=== PATIENT | female | born 1980 | race Caucasian/White ===

== ENCOUNTER 2018-05-19 03:19 | Observation (INO) ==
[2018-05-19] MEDS ORDERED: Sodium Chlor 0.9% Inj 500 ML IV.SIG ONE (03:57)
[2018-05-19 04:16] LABS: Baso # (Auto) 0.1 th/mm3 (0.0-0.2); Baso % (Auto) 0.7 % (0.0-2.0); Eos # (Auto) 0.2 th/mm3 (0.0-0.4); Eos % (Auto) 1.9 % (0.0-4.0); Hematocrit 39.3 % (35.0-46.0); Hemoglobin 13.1 gm/dL (11.6-15.3); Lymph # (Auto) 2.2 th/mm3 (1.0-4.8); Mean Corpuscular HGB Conc 33.3 % (32.0-36.0); Mean Corpuscular Hemoglobin 29.4 pg (27.0-34.0); Mean Corpuscular Volume 88.5 fL (80.0-100.0); Mean Platelet Volume 7.8 fL (7.0-11.0); Mono # (Auto) 0.5 th/mm3 (0.0-0.9); Mono % (Auto) 5.6 % (0.0-8.0); Neut # (Auto) 5.9 th/mm3 (1.8-7.7); Neut % (Auto) 66.8 % (16.0-70.0); Platelet Count 305 th/mm3 (150-450); Red Blood Count 4.44 mil/mm3 (4.00-5.30); Red Cell Distribution Width 14.2 % (11.6-17.2); White Blood Count 8.9 th/mm3 (4.0-11.0)
[2018-05-19 04:28] LABS: Alanine Aminotransferase 20 U/L (10-53); Albumin 3.3 g/dL (3.4-5.0); Anion Gap 7 meq/L (5-15); Aspartate Aminotransferase 16 U/L (15-37); Blood Urea Nitrogen 12 mg/dL (7-18); Calcium 8.4 mg/dL (8.5-10.1); Carbon Dioxide 24.2 meq/L (21.0-32.0); Chloride 111 meq/L (98-107); Glomerular Filtration Rate 65 mL/min (>89); Glucose,Random 97 mg/dL (74-106); Lipase 188 U/L (73-393); Magnesium 2.1 mg/dL (1.5-2.5); Potassium 4.4 meq/L (3.5-5.1); Sodium 142 meq/L (136-145)
[2018-05-19 04:32] LABS: Alkaline Phosphatase 78 U/L (45-117); Total Protein 7.1 g/dL (6.4-8.2)
[2018-05-19 04:33] LABS: Creatine Kinase 83 U/L (26-192)
[2018-05-19 04:35] LABS: Activated Partial Thrombo Time 26.2 sec (24.3-30.1); INR 0.9 Ratio; Prothrombin Time 9.6 sec (9.8-11.6)
[2018-05-19 04:36] LABS: D-Dimer 0.61 mg/L FEU (0.00-0.50)
--- NOTE | 2018-05-19 05:10 | XR ---
EXAM DATE: 05/19/2018 5:01 AM EDT AGE/SEX: 37 years / Female INDICATIONS: Chest pain and shortness of breath. CLINICAL DATA: This is the patient's initial encounter. Patient reports that signs and symptoms have been present for 1 day and indicates a pain score of 4/10. MEDICAL/SURGICAL HISTORY: None. None. COMPARISON: [facility], CHEST PA & LAT, 07/17/2012. . FINDINGS: A single AP view of the chest demonstrates the lungs to be symmetrically aerated without evidence of mass, infiltrate or effusion. The cardiomediastinal contours are unremarkable. Osseous structures a re intact. CONCLUSION: No acute findings. Electronically signed by: Papa Gomez MD 05/19/2018 5:09 AM EDT
--- NOTE | 2018-05-19 05:32 | ED ---
[facility] General Chief complaint: Chest Pain Stated complaint: chest pain/sob Time Seen by Provider: 05/19/18 03:55 Source: patient Mode of arrival: ambulatory Limitations: no limitations History of Present Illness HPI narrative: The patient is a 37 year old female who presents to the [facility] emergency department with a history of chest pain that she noticed after getting up to go to the bathroom at 2:30 AM. She reports that she did not have it upon awakening, however when she went to lie back down she noticed it. She reports that the pain was a sensation like her chest was caving in. She reports that her entire chest and upper abdomen are painful. She reports that the pain was initially severe, however now it is mild and a 1 out of 10 in severity. She reports that her last meal was at 5 PM yesterday. She denies ever having a pain like this previously. She denies having any recent problems with indigestion or heartburn, however she has noticed recently an increasing problem after eating having sudden onset of loose stool. She denies having any blood in her stool black or tarry stools. The patient reports having a sensation of shortness of breath associated with this chest pain. On review of systems otherwise, the patient denies having any known recent fevers or chills, cough, congestion, neck pain, abdominal pain, urinary symptoms, or neurologic symptoms. She denies any prior history of coronary artery disease, hyperlipidemia, hypertension, or diabetes mellitus. She does report smoking approximately a pack of cigarettes per day. She denies having any prior history of DVT or PE. She denies having any lower extremity edema or erythema. Onset (ago): hour(s) Location: chest Radiation: non-radiation Severity: severe Quality: crushing Pain Consistency: constant Relieving factors: none Exacerbating factors: none Associated symptoms: nausea/vomiting (dry heaving x1.) Treatments prior to arrival: none Related Data Home Medications Medication Instructions Recorded Confirmed No Known Home Medications 05/19/18 05/19/18 Allergies Allergy/AdvReac Type Severity Reaction Status Date / Time No Known Allergies Allergy Verified 05/19/18 03:31 Review of Systems ROS Unobtainable All other systems reviewed negative except as stated in HPI PENDING SALE TO [facility] Medical History Medical History Abdominal hernia (Acute) Sciatica (Acute) Surgical History Surgical History H/O hernia repair (Acute) Social History Social History Substance History: No History of Abuse Smoking Status: Current every day smoker Tobacco Type: Cigarettes Cigarettes Per Day: 20 How Often Do You Have a Drink Containing Alcohol: Monthly or less Recent Travel in [facility] within the Last 8 Weeks: No Recent Out of Country Travel within the Last 8 Weeks: No Immunization History Tetanus Immunization: Unsure Hx Influenza Vaccine This Season: No Exam Const General: cooperative, no acute distress and well developed Nutritional Appearance: well nourished Orientation: alert, awake and oriented x3 HENMT Head: normocephalic and atraumatic Nose: no nasal discharge and no epistaxis Mouth: moist mucous membranes Eyes Sclera: normal sclerae Pupils: PERRL Neck Neck: trachea midline and no JVD Resp Effort & Inspection: no use of accessory muscles Auscultation: clear to auscultation bilaterally Cardio Rate: regular rate Rhythm: regular rhythm Heart Sounds: no murmurs GI Inspection: non-distended Palpation: soft, no hepatosplenomegaly and nontender Back/Spine/Pelvis Back: no CVA tenderness Skin General: dry skin (warm) Neuro General: alert, awake and oriented x3 Speech: speech normal Motor: no movement abnormalities noted Extrem General: normal to inspection, no clubbing, no cyanosis, no edema and other (No calf tenderness on palpation bilaterally. Negative Homans sign. No palpable cords.) Psych Mood: congruent mood Affect: normal affect Judgment: judgment good Course Hospital Course: During the course of the patient's emergency department visit, the patient's history, examination, and differential diagnosis were reviewed with the patient. The patient was placed on a court recording monitor with oximetry and frequent blood pressure monitoring. The patient had IV access obtained and blood work sent for analysis. The patient was initially provided aspirin 324 mg p.o. 1, nitroglycerin sublingual 1. The patient reports that her pain then improved down to 1 out of 10 in severity. Initial Documented Vital Signs Temperature 98.4 F 05/19/18 03:25 Pulse Rate 80 05/19/18 03:25 Respiratory Rate 28 H 05/19/18 03:25 Blood Pressure 138/89 05/19/18 03:25 Pulse Oximetry 99 05/19/18 03:25 Last Documented Vital Signs Temperature 98.4 F 05/19/18 03:25 Pulse Rate 71 05/19/18 07:09 Respiratory Rate 17 05/19/18 07:09 Blood Pressure 111/63 05/19/18 07:09 Pulse Oximetry 100 05/19/18 07:09 Medical Decision Making MDM Narrative Medical decision making narrative: Diagnostic evaluation was started to rule out acute coronary syndrome, versus acid reflux, versus biliary colic, versus acute cholecystitis, versus pancreatitis, versus pulmonary embolism The patient's laboratory studies are remarkable for a normal white blood cell count, PT 9.6, PTT 26.2, d-dimer elevated at 0.61, therefore CTA to rule out PE was ordered. Chemistry is remarkable for a troponin of less than 0.02, CPK 83, lipase within normal limits, GFR 65, chloride 111, calcium 8.4, albumin 3.3. Her chest x-ray showed no acute abnormality, CTA to rule out PE showed no evidence of pulmonary embolism. The patient will be admitted to the chest pain center for rule out serial cardiac enzyme protocol followed by consideration for stress testing. The patient's results were discussed with the patient, including the plan of care. I explained that further testing and/ or monitoring is indicated based on the patient's history, examination, and/ or laboratory findings. Therefore, I recommended admission for additional evaluation. The patient expressed understanding and was agreeable with this plan. The patient was admitted to the hospital in stable condition and sent to a bed under the care of [facility]. Differential Diagnosis Differential Diagnosis: acute coronary syndrome, versus acid reflux, versus biliary colic, versus acute cholecystitis, versus pancreatitis, versus pulmonary embolism POC Test Results POC Urine Results: Negative Lab Data Result diagrams: 05/19/18 04:05 05/19/18 04:05 Lab Results 05/19/18 05/19/18 05/19/18 Range/Units 04:05 04:05 04:05 WBC 8.9 (4.0-11.0) th/mm3 RBC 4.44 (4.00-5.30) mil/mm3 Hgb 13.1 (11.6-15.3) gm/dL Hct 39.3 (35.0-46.0) % MCV 88.5 (80.0-100.0) fL MCH 29.4 (27.0-34.0) pg MCHC 33.3 (32.0-36.0) % RDW 14.2 (11.6-17.2) % Plt Count 305 (150-450) th/mm3 MPV 7.8 (7.0-11.0) fL Neut % (Auto) 66.8 (16.0-70.0) % Lymph % (Auto) 25.0 (9.0-44.0) % Angelina % (Auto) 5.6 (0.0-8.0) % Eos % (Auto) 1.9 (0.0-4.0) % Baso % (Auto) 0.7 (0.0-2.0) % Neut # (Auto) 5.9 (1.8-7.7) th/mm3 Lymph # (Auto) 2.2 (1.0-4.8) th/mm3 Angelina # (Auto) 0.5 (0.0-0.9) th/mm3 Eos # (Auto) 0.2 (0.0-0.4) th/mm3 Baso # (Auto) 0.1 (0.0-0.2) th/mm3 WBC Differential . Differential Comment Auto diff final PT 9.6 L (9.8-11.6) sec INR 0.9 Ratio APTT 26.2 (24.3-30.1) sec D-Dimer Quant (PE/DVT) 0.61 H (0.00-0.50) mg/L FEU Sodium 142 (136-145) meq/L Potassium 4.4 (3.5-5.1) meq/L Chloride 111 H (98-107) meq/L Carbon Dioxide 24.2 (21.0-32.0) meq/L Anion Gap 7 (5-15) meq/L BUN 12 (7-18) mg/dL Creatinine 0.97 (0.50-1.00) mg/dL Estimated GFR 65 L (>89) mL/min Random Glucose 97 (74-106) mg/dL Calcium 8.4 L (8.5-10.1) mg/dL Magnesium 2.1 (1.5-2.5) mg/dL Total Bilirubin 0.2 (0.2-1.0) mg/dL AST 16 (15-37) U/L ALT 20 (10-53) U/L Alkaline Phosphatase 78 (45-117) U/L Total Creatine Kinase 83 (26-192) U/L Troponin I Less than 0.02 L (0.02-0.05) ng/mL B-Natriuretic Peptide (0-100) pg/mL Total Protein 7.1 (6.4-8.2) g/dL Albumin 3.3 L (3.4-5.0) g/dL Lipase 188 (73-393) U/L Urine Color (Yellw/Straw) Urine Clarity (Clear) Urine pH (5.0-8.5) Ur Specific [place] (1.002-1.035) Urine Protein (Neg-Trace) mg/dL Urine Glucose (UA) (Negative) mg/dL Urine Ketones (Negative) mg/dL Urine Occult Blood (Negative) Urine Nitrate (Negative) Urine Bilirubin (Negative) Urine Urobilinogen (Less than 2) mg/dL Ur Leukocyte Esterase (Negative) Urine RBC (0-3) /hpf Urine WBC (0-5) /hpf Ur Squamous Epith Cells (0-5) /hpf Urine Bacteria (None) /hpf Urine Mucus (Occasional) /lpf Micro UA Comment Urine Culture Comments 05/19/18 05/19/18 Range/Units 04:05 05:20 WBC (4.0-11.0) th/mm3 RBC (4.00-5.30) mil/mm3 Hgb (11.6-15.3) gm/dL Hct (35.0-46.0) % MCV (80.0-100.0) fL MCH (27.0-34.0) pg MCHC (32.0-36.0) % RDW (11.6-17.2) % Plt Count (150-450) th/mm3 MPV (7.0-11.0) fL Neut % (Auto) (16.0-70.0) % Lymph % (Auto) (9.0-44.0) % Angelina % (Auto) (0.0-8.0) % Eos % (Auto) (0.0-4.0) % Baso % (Auto) (0.0-2.0) % Neut # (Auto) (1.8-7.7) th/mm3 Lymph # (Auto) (1.0-4.8) th/mm3 Angelina # (Auto) (0.0-0.9) th/mm3 Eos # (Auto) (0.0-0.4) th/mm3 Baso # (Auto) (0.0-0.2) th/mm3 WBC Differential Differential Comment PT (9.8-11.6) sec INR Ratio APTT (24.3-30.1) sec D-Dimer Quant (PE/DVT) (0.00-0.50) mg/L FEU Sodium (136-145) meq/L Potassium (3.5-5.1) meq/L Chloride (98-107) meq/L Carbon Dioxide (21.0-32.0) meq/L Anion Gap (5-15) meq/L BUN (7-18) mg/dL Creatinine (0.50-1.00) mg/dL Estimated GFR (>89) mL/min Random Glucose (74-106) mg/dL Calcium (8.5-10.1) mg/dL Magnesium (1.5-2.5) mg/dL Total Bilirubin (0.2-1.0) mg/dL AST (15-37) U/L ALT (10-53) U/L Alkaline Phosphatase (45-117) U/L Total Creatine Kinase (26-192) U/L Troponin I (0.02-0.05) ng/mL B-Natriuretic Peptide 20 (0-100) pg/mL Total Protein (6.4-8.2) g/dL Albumin (3.4-5.0) g/dL Lipase (73-393) U/L Urine Color Yellow (Yellw/Straw) Urine Clarity Clear (Clear) Urine pH 5.0 (5.0-8.5) Ur Specific [place] 1.020 (1.002-1.035) Urine Protein Negative (Neg-Trace) mg/dL Urine Glucose (UA) Negative (Negative) mg/dL Urine Ketones Negative (Negative) mg/dL Urine Occult Blood Negative (Negative) Urine Nitrate Negative (Negative) Urine Bilirubin Negative (Negative) Urine Urobilinogen Less than 2 (Less than 2) mg/dL Ur Leukocyte Esterase Negative (Negative) Urine RBC Less than 1 (0-3) /hpf Urine WBC Less than 1 (0-5) /hpf Ur Squamous Epith Cells 3 (0-5) /hpf Urine Bacteria Rare H (None) /hpf Urine Mucus Few H (Occasional) /lpf Micro UA Comment Culture not ind Urine Culture Comments Culture not ind Imaging Data Radiologist's impression: Chest X-Ray 05/19/18 03:57 CONCLUSION: No acute findings. Chest CTA 05/19/18 05:02 CONCLUSION: 1. No acute findings. Negative for pulmonary embolus. Discharge Plan Discharge Disposition Patient Disposition: 30 Still Patient Discharge Details Diagnosis: Chest pain, rule out acute myocardial infarction Physicians Team ED Provider: Elisa Davies Primary Care Provider: Magdy Johnson Attending Provider: Nghia Bauman Discharge Interventions Interventions: Vital Signs Last Done: 05/19/18 03:30 Status ED Status: Admitted Observation Patient
[2018-05-19 05:39] LABS: Bacteria,Urine Rare /hpf; Bilirubin,Urine Negative (Negative); Clarity,Urine Clear (Clear); Color,Urine Yellow (Yellw/Straw); Glucose,Urine (UA) Negative (Negative); Leukocyte Esterase,Urine Negative (Negative); Mucus,Urine Few /lpf (Occasional); Nitrite,Urine Negative (Negative); Squamous Epithelial Cell,Urine 3 /hpf (0-5)
--- NOTE | 2018-05-19 05:58 | CT ---
EXAM DATE: 05/19/2018 5:52 AM EDT AGE/SEX: 37 years / Female INDICATIONS: Chest pain and shortness of breath; rule out pulmonary embolus. CLINICAL DATA: This is the patient's initial encounter. Patient reports that signs and symptoms have been present for 1 day and indicates a pain score of 6/10. MEDICAL/SURGICAL HISTORY: None. . Hernia repair RADIATION DOSE: 10.23 CTDI (mGy) COMPARISON: No prior exams available for comparison. TECHNIQUE: Volumetric scanning was performed using a multi-row detector CT scanner during bolus infu jarrod of 71 ml Omnipaque 350 (iohexol) nonionic water-soluble contrast as a single exam dose. The sohail a was post processed with a variety of visualization algorithms including full volume maximum intensi ty projection and sliding thin slab reformation. Using automated exposure control and adjustment of the mA and/or kV according to patient size, radiation dose was kept as low as reasonably achievable t o obtain optimal diagnostic quality images. DICOM format image data is available electronically for review and comparison. FINDINGS: No filling defects to suggest pulmonary embolic disease. No lung consolidation. No pleural or pericar dial effusion. No adenopathy. CONCLUSION: 1. No acute findings. Negative for pulmonary embolus. Electronically signed by: Papa Gomez MD 05/19/2018 5:57 AM EDT
[2018-05-19 07:11] VITALS: O2SAT 100
[2018-05-19 08:32] LABS: Creatine Kinase 74 U/L (26-192)
--- NOTE | 2018-05-19 10:07 | P.HPCA ---
History of Present Illness Primary Care Physician: Magdy Johnson DO Chief Complaint: Chest pain History of Present Illness: This is a 37-year-old female presents to ED with complaint of developing a chest discomfort about 3:00 this morning while she was in bed. Lasted 2-1/2 hours. She was short of breath and nauseous without diaphoresis. Found nothing really to worsen or improve the symptoms when they are present. Has not really had this in the past. Denies history of hypertension, hyperlipidemia , diabetes, and CAD. Denies . Denies family history of CAD. Has smoked a pack of cigarettes daily for more than 15 years. Occasional alcohol. Denies illicit drug use. - Diagnosis (1) Chest pain (2) Tobacco abuse Inpatient Certification: I certify that the inpatient services were ordered in accordance with Medicare regulations governing the order. This includes certification that hospital inpatient services are reasonable and necessary and in the case of services not specified as inpatient-only under 42 CFR 419.22(n), that they are appropriately provided as inpatient services in accordance to with the 2-midnight benchmark under 43 CFR 412.3(e) Review of Systems General: Patient denies fevers, chills, and recent travel. HEENT: Patient denies headache, sore throat, difficulty swallowing. Cardiovascular: Has the chest discomfort as mentioned above. Denies sensation of heart beating rapidly or irregularly. No syncope. Denies diaphoresis. Respiratory: She was short of breath. Denies inspirational chest discomfort. Denies coughing wheezing or hemoptysis. GI: She was nauseous. Patient denies vomiting, diarrhea, abdominal pain, bloody stools. Musculoskeletal: Patient denies joint pain or edema. Denies calf pain or edema. Neurovascular: Patient denies numbness, tingling, weakness in extremities. Denies headache. Endocrine: Denies polyuria and polydipsia. Hematologic: Denies easy bruising. Skin: Denies rash or itching. PMFSH - History History Provided By: Patient - Medical History Medical History: Medical History (Last Reviewed 05/19/18 @ 07:59 by Elisa Davies MD) Abdominal hernia (Acute) Sciatica (Acute) - Surgical History Surgical History: Surgical History (Last Reviewed 05/19/18 @ 07:59 by Elisa Davies MD) H/O hernia repair - Tobacco History Tobacco Use In Past 30 Days: Yes Smoking Status: Current every day smoker Tobacco Type: Cigarettes Cigarettes Per Day: 20 - Alcohol History How Often Do You Have a Drink Containing Alcohol: Monthly or less - Substance Use History Substance History: No History of Abuse - Travel History Recent Travel in the [place] Within the Last 8 Weeks: No Recent Travel Out of the Country Within the Last 8 Weeks: No - Immunization History Tetanus Immunization: Unsure Hx Influenza Vaccine This Season: No Medications and Allergies Active Medications: Active Medications Sodium Chloride (Ns Flush) 2 ml IV.FLUSH UNSCH PRN PRN Reason: FLUSH AFTER USING IV ACCESS Last Admin: 05/19/18 05:06 Dose: 2 ml Sodium Chloride (Ns Flush) 2 ml IV.FLUSH BID TOOTIE Sodium Chloride (Ns Flush) 2 ml IV.FLUSH PRN PRN PRN Reason: FLUSH AFTER USING IV ACCESS Allergies Allergy/AdvReac Type Severity Reaction Status Date / Time No Known Allergies Allergy Verified 05/19/18 03:31 Home Medications Medication Instructions Recorded Confirmed Type No Known Home Medications 05/19/18 05/19/18 History Exam Vital signs: Vital Signs 05/19/18 03:25 05/19/18 03:30 05/19/18 04:07 Temperature 98.4 F Pulse Rate 80 74 Respiratory Rate 28 H 20 Blood Pressure 138/89 125/69 Pulse Oximetry 99 100 99 05/19/18 07:09 Temperature Pulse Rate 71 Respiratory Rate 17 Blood Pressure 111/63 Pulse Oximetry 100 Intake & Output 05/18/18 05/19/18 05/19/18 18:59 06:59 18:59 Weight 129.274 kg Narrative: GENERAL: This is a well-nourished, well-developed patient, in no apparent distress. Patient speaks in clear complete sentences. Patient is pleasant. HEENT: Head is atraumatic and normocephalic. Neck is supple without lymphadenopathy and trachea is midline. No JVD or carotid bruits. CARDIOVASCULAR: Regular rate and rhythm without murmurs, gallops, or rubs. RESPIRATORY: Clear to auscultation. Breath sounds equal bilaterally. No wheezes , rales, or rhonchi. Chest wall is nontender. No use of accessory muscles. GASTROINTESTINAL: Abdomen is nontender, nondistended. Abdomen soft. No obvious pulsatile mass or bruit. No CVA tenderness. Strong femoral pulses bilaterally. Normal bowel sounds in all quadrants. MUSCULOSKELETAL: Patient is moving upper and lower extremities freely. No calf tenderness or edema, no Homans sign. Strong pulses in upper and lower extremities. NEUROLOGICAL: Patient is alert and oriented. Cranial nerves 2-12 are grossly intact. No focal deficits and speech is clear. SKIN: No rash and turgor is normal. Results 05/19/18 04:05 05/19/18 04:05 Cardiac Enzymes 05/19/18 05/19/18 05/19/18 Range/Units 04:05 04:05 07:30 AST 16 (15-37) U/L Troponin I Less than 0.02 L Less than 0.02 L (0.02-0.05) ng/mL B-Natriuretic Peptide 20 (0-100) pg/mL Coagulation 05/19/18 05/19/18 Range/Units 04:05 04:05 PT 9.6 L (9.8-11.6) sec APTT 26.2 (24.3-30.1) sec B-Natriuretic Peptide 20 (0-100) pg/mL CBC 05/19/18 Range/Units 04:05 WBC 8.9 (4.0-11.0) th/mm3 RBC 4.44 (4.00-5.30) mil/mm3 Hgb 13.1 (11.6-15.3) gm/dL Hct 39.3 (35.0-46.0) % Plt Count 305 (150-450) th/mm3 Neut # (Auto) 5.9 (1.8-7.7) th/mm3 Lymph # (Auto) 2.2 (1.0-4.8) th/mm3 [place] # (Auto) 0.5 (0.0-0.9) th/mm3 Eos # (Auto) 0.2 (0.0-0.4) th/mm3 Baso # (Auto) 0.1 (0.0-0.2) th/mm3 Comprehensive Metabolic Panel 05/19/18 Range/Units 04:05 Sodium 142 (136-145) meq/L Potassium 4.4 (3.5-5.1) meq/L Chloride 111 H (98-107) meq/L Carbon Dioxide 24.2 (21.0-32.0) meq/L BUN 12 (7-18) mg/dL Creatinine 0.97 (0.50-1.00) mg/dL Calcium 8.4 L (8.5-10.1) mg/dL AST 16 (15-37) U/L ALT 20 (10-53) U/L Alkaline Phosphatase 78 (45-117) U/L Total Protein 7.1 (6.4-8.2) g/dL Albumin 3.3 L (3.4-5.0) g/dL Intake and Output 05/18/18 05/19/18 05/19/18 22:59 06:59 14:59 Other: Weight 129.274 kg EKG interpretations - EKG EKG shows: sinus rhythm (EKGs are sinus rhythm without significant ST segment depressions or elevations.) Caprini VTE Risk Assessment Caprini VTE Risk Assessment: No/Low Risk (score <= 1) Caprini Risk Assessment Model: Point Value = 1 Point Value = 2 Point Value = 3 Point Value = 5 Age 41-60 Minor surgery BMI > 25 kg/m2 Swollen legs Varicose veins or History of unexplained or recurrent spontaneous Oral contraceptives or hormone replacement Sepsis (< 1 month) Serious lung disease, including pneumonia (< 1 month) Abnormal pulmonary function Acute myocardial infarction Congestive heart failure (< 1 month) History of inflammatory bowel disease Medical patient at bed rest Age 61-74 Arthroscopic surgery Major open surgery (> 45 min) Laparoscopic surgery (> 45 min) Malignancy Confined to bed (> 72 hours) Immobilizing plaster cast Central venous access Age >= 75 History of VTE Family history of VTE Factor V Leiden Prothrombin [id number] Lupus anticoagulant Anticardiolipin antibodies Elevated serum homocysteine Heparin-induced thrombocytopenia Other congenital or acquired thrombophilia Stroke (< 1 month) Elective arthroplasty Hip, pelvis, or leg fracture Acute spinal cord injury (< 1 month) Prophylaxis Regimen: Total Risk Factor Score Risk Level Prophylaxis Regimen 0-1 Low Early ambulation 2 Moderate Order ONE of the following: *Sequential Compression Device (SCD) *Heparin 5000 units SQ BID 3-4 Higher Order ONE of the following medications: *Heparin 5000 units SQ TID *Enoxaparin/Lovenox 40 mg SQ daily (WT < 150 kg, CrCl > 30 mL/min) *Enoxaparin/Lovenox 30 mg SQ daily (WT < 150 kg, CrCl > 10-29 mL/min) *Enoxaparin/Lovenox 30 mg SQ BID (WT < 150 kg, CrCl > 30 mL/min) AND/OR *Sequential Compression Device (SCD) 5 or more Highest Order ONE of the following medications: *Heparin 5000 units SQ TID (Preferred with Epidurals) *Enoxaparin/Lovenox 40 mg SQ daily (WT < 150 kg, CrCl > 30 mL/min) *Enoxaparin/Lovenox 30 mg SQ daily (WT < 150 kg, CrCl > 10-29 mL/min) *Enoxaparin/Lovenox 30 mg SQ BID (WT < 150 kg, CrCl > 30 mL/min) AND *Sequential Compression Device (SCD) Assessment and Plan - Assessment (1) Chest pain Code(s): R07.9 - Chest pain, unspecified Status: Acute (2) Tobacco abuse Code(s): Z72.0 - Tobacco use Status: Acute - Plan * Chest pain: Patient has had serial cardiac enzymes and EKGs were ruling out purposes. She was seen by Dr. Antonio Leggett of cardiology in the chest pain center and will undergo a Lexiscan. Patient be discharged home if her stress test is nonischemic with instructions to follow-up with PCP and return to ED for interval issues. * Tobacco abuse: Patient has been counseled on the importance of smoking cessation. Patient is stable at this time. She is agreeable to this plan.
[2018-05-19] MEDS ORDERED: Regadenoson Inj 0.4 MG/5 ML Syringe IV.PUSH ONE (10:55)
--- NOTE | 2018-05-19 11:40 | NM ---
EXAM DATE: 05/19/2018 11:30 AM EDT AGE/SEX: 37 years / Female INDICATIONS:Angina. . Substernal chest pain. CLINICAL DATA: This is the patient's initial encounter. Patient reports that signs and symptoms have been present for 1 day and indicates a pain score of 6/10. MEDICAL/SURGICAL HISTORY: None. Inguinal hernia repair. COMPARISON: No prior exams available for comparison. DOSE: 11 mCi Tc 99m Myoview at rest 35 mCi [id number] at stress 0.4 mg Lexiscan STRESS SYMPTOMS: Dyspnea and legs heavy. EJECTION FRACTION: 69 % TECHNIQUE: The patient underwent pharmacologic stress with infusion of prescribed dose. Continuous ECG tracing was monitored during stress. Gated SPECT imaging was performed after stress and conventi onal SPECT imaging was performed at rest. The examination was performed on a SPECT/CT scanner, both attenuation and non-corrected datasets were reviewed. FINDINGS: Distribution: The maximum perfused segment at stress is in the anterolateral wall. Perfusion Study: There is mildly diminished relative to perfusion to much of the cardiac apex. Sugg estion of mild redistribution Gated Study: There are intact wall motion and wall thickening without hypokinetic or dyskinetic segm ents. The ejection fraction is calculated at 69%. RISK CATEGORY: Intermediate (1-3 % Annual Mortality Rate) CONCLUSION: Moderate size mild severity apical perfusion abnormality with at least mild redistribution suspected. Electronically signed by: Otoniel Fischer MD 05/19/2018 11:39 AM EDT
[2018-05-19 14:19] VITALS: BP 121/83; PULSE 82; RESP 20; TEMP 98.7
--- NOTE | 2018-05-19 14:42 | ECG ---
Date Performed: 05/19/2018 Time Performed: 08:26:05 PTAGE: 37 years EKG: Sinus rhythm LOW QRS VOLTAGE IN PRECORDIAL LEADS BORDERLINE ECG NO PREVIOUS TRACING DOCTOR: Antonio Leggett Interpretating Date/Time 05/19/2018 14:41:59
--- NOTE | 2018-05-19 14:43 | ECG ---
Date Performed: 05/19/2018 Time Performed: 04:05:06 PTAGE: 37 years EKG: Sinus rhythm LOW QRS VOLTAGE IN PRECORDIAL LEADS BORDERLINE ECG PREVIOUS TRACING : 07/17/2012 17.45 Since previous tracing, no significant change noted DOCTOR: Antonio Leggett Interpretating Date/Time 05/19/2018 14:42:27
--- NOTE | 2018-05-19 14:51 | TR ---
Date Performed: 05/19/2018 Time Performed: 10:38:49 DOCTOR: Antonio Leggett DRUG LIST: CLINICAL HISTORY: CHEST PAIN REASON FOR TEST: CHEST PAIN REASON FOR ENDING: OBSERVATION: CONCLUSION: COMMENTS: Lexiscan stress test was performed under standard four minute protocol. Radionuclide was injected one minute prior to ending the test. No electrocardiographic abormalities were present t o suggest ischemia. Nuclear imaging and interpretation are pending.
--- NOTE | 2018-05-20 14:44 | CATHPROC ---
CONWEAVER HIS Report Study Information Study Number Admission Scheduled Start Study Start [id number] May 19 2018 6:36AM 05/20/2018 May 20 2018 1:49PM [place] [facility] Cardiac Catheterization Admit Source Facility Department Emergency department [facility] - [facility] Supervisor Physician and Clinical Staff Initial MD Shelby, Edilberto Director Health Matthieu Patterson RN Other cathlab, cathlab Recorder Richard Buck RCIS(BS) Scrub Aleshia Maguire,RT(R) (BS) Procedures Performed Procedure Location (Site) Vessel Name Coronary Angiograms LCA Left Coronary Coronary Angiograms RCA Right Coronary L Heart Cath LV Gram-hand inj. LV LV Ventricle Equipment Time Manager Of Program Description Size Mfg Part Number Used/Scraped TRANSDUCER, TRUWAVE [id number] 14:05 LIANG MAURICE * Used W/STOCKCOCK *[id number] *[id number] *[id number] 14:05 [employer] BLANKET,WARM AIR CCL * Used *[id number] 14:05 [employer] PACK, CCL CUSTOM * Used *[id number] 14:05 [employer]ra PACER PEN, SKIN DUAL W/ RULER * Used *[id number] 14:05 [employer] WIRE, 3MMJ .035 180CM 180CM Used *[id number] 14:05 NAMIC MANIFOLD, 4 PORT * Used *[id number] 14:05 [employer]COMED OMNIPAQUE, 350 MG, 150ML 150ML [id number] 14:05 [employer] Solutions[employer] MEDICAL SHEATH, FR4 TERUMO (10CM) FR 4 Used *[id number] History: Allergies Allergy Reaction No Known Allergies History: Risk Factors Family History of Hypertension Dyslipidemia Previous AL Previous Heart Failure Premature CAD No No No No No Prior Valve Prior PCI Prior CABG Surgery No No No Cerebrovascular Peripheral Artery Chronic Lung On Dialysis Diabetes Disease Disease Disease No No No No No History: Symptoms/Diagnosis Selection Items Chest pain History: Stress Tests Stress or Imaging Studies Performed Yes Standard Exercise Stress Test No Stress Echo No Stress Test SPECT Stress Test SPECT Result Stress Test SPECT Ischemia Risk/Extent Yes Positive Unavailable Stress Test CMR No Cardiac CTA Coronary Calcium Score No No History: Other Disease Selection Items HTN History: Other Current Smoker Packs a Day Years Used Pack Years Yes 1 15 15 Labs Hgb (g/dl) Hct (%) WBC (l/cumm) Platelets (thousands) 11.60-17.00 35.00-51.00 4.00-11.00 150.00-450.00 13.1 39.3 8.9 305 Glucose (mg/dl) BUN (mg/dl) Creatinine (mg/dl) BUN:Creatinine (1:x) 74.00-106.00 7.00-18.00 0.50-1.30 10.00-20.00 134 10 0.9 11.1 Na (meq/l) K (meq/l) 136.00-145.00 3.50-5.10 142 3.9 INR (PTT:PT) 0.90-1.10 0.9 Troponin I (ng/ml) CPK (u/l) CPK-MB (ng/ML) 0.02-0.05 26.00-308.00 0.50-3.60 0.02 69 Not Drawn Medication Medication Total Dose (Bolus/Oral) Medication Total Dosage/Unit 1% XYLOCAINE 20 mL FENTANYL 25 mcg VERSED 1 mg Medications (Bolus/Oral) Medication Time Given Dosage/Unit Administered By Reason VERSED 05/20/2018 2:25:25 PM 1 mg Matthieu Patterson 1 mg VERSED given in lab by Matthieu Patterson RN in Right Antecubital via Peripheral IV. Ordered by Edilberto Angel. FENTANYL 05/20/2018 2:25:36 PM 25 mcg Matthieu Patterson 25 mcg FENTANYL given in lab by Matthieu Patterson RN in Right Antecubital via Peripheral IV. Ordered by Edilberto Shelby. 1% XYLOCAINE 05/20/2018 2:28:18 PM 20 mL Edilberto Shelby 20 mL 1% XYLOCAINE given in lab by Edilberto Shelby in Right Groin via Subcutaneous. Medication (Drip) Medication Time Given Dosage/Unit Concentration/Unit Diluent (ml) Solution IV Solutions 05/20/2018 1:48:55 PM 0 mL (IV) 500 NaCl .9 Patient arrived on IV Solutions in Right Antecubital via Peripheral IV. Pump/Drip Flow = 20 ml/hr usi ng NaCl .9. Ordered by Edilberto Shelby. Initial Case Assessment Cardiovascular HR Rhythm NIBP Chest Pain 72 nsr 128/73 0 Edema Present Skin color Skin None Normal Warm Dry Circulatory - Right Pulses Dorsalis Pedis Femoral 2 2 Scale (0,1,2,3,4,d) Circulatory - Left Pulses Dorsalis Pedis Femoral 2 2 Scale (0,1,2,3,4,d) Neurological State Oriented to time-place- Alert Moves all extremities person Respiration - General Respiration Rate SpO2 (%) (B/min) 15 100 Final Case Assessment Cardiovascular HR Rhythm NIBP Chest Pain 65 nsr 128/73 0 Edema Present Skin color Skin None Normal Warm Dry Circulatory - Right Pulses Dorsalis Pedis Femoral 2 2 Scale (0,1,2,3,4,d) Circulatory - Left Pulses Dorsalis Pedis Femoral 2 2 Scale (0,1,2,3,4,d) Neurological State Oriented to time-place- Alert Moves all extremities person Respiration - General Respiration Rate SpO2 (%) (B/min) 15 100 Chronological Log Time Study Chronological Log 13:48:46 Patient arrived via Bed. 13:48:47 Patient Name, D.O.B, / Armband Verified By R.N. 13:48:48 Consent signed by the physician and the patient and verified by the [facility] Supervisor staff. 13:48:48 Pre-op and post- op instructions given; patient acknowledges understanding of instructions. 13:48:49 Verbal Stimulation=2 Physical Stimulation=2 Airway=2 Respiration=2 TOTAL=8. (0=absent, 1=li mited, 2=present) 13:48:50 Presedation assessment performed by [facility] Supervisor RN. 13:48:51 Immediate Presedation assesment performed by physician. 13:48:51 Patient has been NPO for More than 6Hrs. 13:48:52 Skin Breakdown- none per patient 13:48:53 Patient Warmer Placed on the Table. 13:48:53 [place] Prominences Protected 13:48:55 A # 20 IV was noted in the Antecubital (right). Grade = 0 Patient arrived on IV Solutions in Right Antecubital via Peripheral IV. Pump/Drip Flow = 20 ml/ hr using NaCl .9. Ordered 13:48:55 by Edilberto Shelby. 13:48:56 History and physical on the chart or being dictated. Vitals capture started with the following parameters, Patient=Adult, Interval=5 min, Initial Pr felqni=286 mmHg, 13:57:01 Deflation Rate=5 mmHg, Cuff placed on Right Arm 13:57:41 Reference ECG taken 13:57:54 HR=66 bpm, UIHP=192/73 mmhg, XkR5=798.0 %, Resp=16 B/min, Pain=0, Mary=10, Hoang=2 Assessment: Initial Case, HR=72 BPM, Rhythm=nsr, VZWL=709/73 mmhg, Chest Pain=0, Edema=None, Co genie=Normal, Skin = Warm, Dry Right Pulses: Alexandre Ped=2, Femoral=2 13:59:52 Left Pulses: Alexandre Ped=2, Femoral=2 Neurological: State=Alert, Ox3, OSORIO Respiration: Resp=15 B/min, OtI2=111 % 14:02:37 HR=65 bpm, JMTW=256/78 mmhg, AyM1=912.0 %, Resp=14 B/min, Pain=0, Mary=10, Hoang=2 14:05:20 Bilateral groins prepped with 2% chlorhexidine, and draped after a 3 minute waiting time. 14:09:20 HR=66 bpm, QRNN=332/64 mmhg, IbY1=789.0 % 14:10:05 MD paged 14:10:20 MD responded 14:11:20 Pressure channel 1 zeroed. 14:12:45 HR=64 bpm, QNBR=393/63 mmhg, TiK9=651.0 %, Resp=14 B/min, Pain=0, Mary=10, Hoang=2 14:19:37 HR=71 bpm, UJLB=917/78 mmhg, SpO2=95 %, Pain=0, Mary=10, Hoang=2 14:23:18 HR=64 bpm, DOEV=558/141 mmhg, SpO2=96 %, Pain=0, Mary=10, Hoang=2 14:24:10 MD arrived. 14:24:58 Contrast Scanned 14:24:59 Immediate Presedation assesment performed by physician. 14:25:25 1 mg VERSED given in lab by Matthieu Patterson, RN in Right Antecubital via Peripheral IV. Order ed by Edilberto Shelby. 25 mcg FENTANYL given in lab by Matthieu Patterson, RN in Right Antecubital via Peripheral IV. Order ed by Afsaneh 14:25:36 Edilberto. 14:27:52 HR=64 bpm, ZEIF=312/62 mmhg, SpO2=95 %, Resp=15 B/min, Pain=0, Mary=10, Hoang=2 Time Out. Correct patient, correct procedure, correct physician, labs, allergies, and equipment verified with cardiac cath technologist 14:27:55 team present. Fire risk assesment completed (see hard stop sheet for coding). Time Out Conc urred by MD and individual staff in procedure. 14:28:18 Case Start 14::18 20 mL 1% XYLOCAINE given in lab by Edilberto Shelby in Right Groin via Subcutaneous. 14:29:33 Access site was Right Femoral Artery. 14:29:39 A SHEATH, FR4 TERUMO (10CM) FR 4 was advanced into the Fem Art (right) using the Percutaneo us technique. A JR 4.0 INFINITI CATHETER FR 4 was advanced over a wire. OMNIPAQUE, 350 MG, 150ML 150ML was us ed for 14:29:43 injections. Recorded Pressure: LV, HR=65, Condition=Condition 1 14:31:31 (Left Ventricle) LV 105/3/5 14:31:36 The LV was manually injected with 10 cc's and visualized. OMNIPAQUE, 350 MG, 150ML 150ML us ed. Recorded Pressure: Ao, HR=62, Condition=Condition 1 14:31:58 (Aorta) Ao 107/66/85 14:32:02 The RCA was injected and visualized at various angles. OMNIPAQUE, 350 MG, 150ML 150ML used . 14:32:37 Catheter was removed A JL 4.0 INFINITI CATHETER FR 4 was advanced over a wire. OMNIPAQUE, 350 MG, 150ML 150ML was us ed for 14:32:38 injections. 14:33:51 The LCA was injected and visualized at various angles. OMNIPAQUE, 350 MG, 150ML 150ML used . Vitals capture started with the following parameters, Patient=Adult, Interval=5 min, Initial Pr bqkagz=526 mmHg, 14:35:02 Deflation Rate=5 mmHg, Cuff placed on Right Arm 14:35:04 Catheter was removed 14:35:06 Case End (Physician broke scrub) Assessment: Final Case, HR=65 BPM, Rhythm=nsr, KYBZ=202/73 mmhg, Chest Pain=0, Edema=None, Col or=Normal, Skin = Warm, Dry Right Pulses: Alexandre Ped=2, Femoral=2 14:35:10 Left Pulses: Alexandre Ped=2, Femoral=2 Neurological: State=Alert, Ox3, OSORIO Respiration: Resp=15 B/min, CrM2=268 % 14:35:35 Catheter(s) removed without difficulty 14:35:37 Sheath(s) left in place, will be removed in Holding Area 14:35:38 No case complications noted. 14:35:40 Sterile dressing applied to site 14:35:41 Cine recording checked. 14:35:42 Bedside Report will be given. 14:35:44 Verbal Stimulation=2 Physical Stimulation=2 Airway=2 Respiration=2 TOTAL=8. (0=absent, 1=l imited, 2=present) 14:35:50 A Left Heart Cath was performed. 14:37:32 Vitals capture stopped. 14:42:10 Patient moved to [facility] End Study - Contrast Media Used In Study Contrast Total Opened (mL) Total Used (mL) Total Wasted (mL) Omnipaque 40 40 0 End Study - Maximum Contrast Load Max Contrast Load (mL) 718.4 End Study - Radiation Exposure Fluoro Time (minutes) 1.1 End Study - Patient Disposition Complications Transferred To Interventional Outcome No [facility] Supervisor Holding No attempt made
== END 2018-05-19 12:48 | disposition left against medical advice (07) ==
LOC: NEDA 03:19 → NEPE 03:19 → NEPHCDU 03:19
PROVIDERS: ADMIT Internal Medicine Interventional Cardiology; ATTEND Internal Medicine Interventional Cardiology
DX: R07.89 Other chest pain; R06.02 Shortness of breath; R11.2 Nausea with vomiting, unspecified; F17.210 Nicotine dependence, cigarettes, uncomplicated

== ENCOUNTER 2018-05-20 09:07 | Observation (INO) ==
[2018-05-20 09:25] VITALS: BP 118/66
[2018-05-20 10:34] LABS: Alanine Aminotransferase 26 U/L (10-53); Albumin 3.5 g/dL (3.4-5.0); Anion Gap 10 meq/L (5-15); Aspartate Aminotransferase 17 U/L (15-37); Blood Urea Nitrogen 10 mg/dL (7-18); Calcium 8.7 mg/dL (8.5-10.1); Carbon Dioxide 21.8 meq/L (21.0-32.0); Chloride 110 meq/L (98-107); Glomerular Filtration Rate 64 mL/min (>89); Glucose,Random 134 mg/dL (74-106); Potassium 3.9 meq/L (3.5-5.1); Sodium 142 meq/L (136-145)
[2018-05-20 10:38] LABS: Alkaline Phosphatase 91 U/L (45-117); Total Protein 7.5 g/dL (6.4-8.2)
[2018-05-20 10:40] LABS: Creatine Kinase 69 U/L (26-192)
--- NOTE | 2018-05-20 12:02 | ED ---
HPI General Chief Complaint: Chest Pain Stated Complaint: SOB/Chest pain Time Seen by Provider: 05/20/18 11:43 Source: patient Mode of arrival: ambulatory Limitations: no limitations History of Present Illness HPI narrative: 37 YO F presents to the ED for evaluation of intermittent CP. Patient was [facility] yesterday for ACS rule out. She had an abnormal stress test and plan was to admit to the toucher up for further evaluation. However, the patient left AMA. On presentation the patient states that "I panicked yesterday, but I'm ready to be evaluated now." She denies CP on presentation. She states that she was experiencing 3/10 CP while waiting in the triage area today. She denies accompanying SOB, N/V, diaphoresis. She denies chronic health problems and takes no daily medications. Denies family history of cardiac issues. She is a 15 year pack per day smoker. Endorses occasional EtOH. She ate at 8am today. Complete Quality Measures for STEMI Alert Patients Related Data Home Medications Medication Instructions Recorded Confirmed No Known Home Medications 05/20/18 05/20/18 Allergies Allergy/AdvReac Type Severity Reaction Status Date / Time No Known Allergies Allergy Verified 05/19/18 03:31 Review of Systems Except as stated in HPI: all other systems reviewed are negative [facility] Medical History Medical History Abdominal hernia (Acute) Sciatica (Acute) Surgical History Surgical History H/O hernia repair (Acute) Social History Social History Substance History: No History of Abuse Second Hand Smoke Exposure: Yes Smoking Status: Heavy tobacco smoker Tobacco Type: Cigarettes Cigarettes Per Day: 20 How Often Do You Have a Drink Containing Alcohol: Monthly or less Recent Travel in [facility] within the Last 8 Weeks: No Recent Out of Country Travel within the Last 8 Weeks: No Exam Narrative Exam Narrative: GENERAL: Well-nourished, well-developed obese white female no acute distress. SKIN: Focused skin assessment warm/dry. HEAD: Normocephalic. EYES: No scleral icterus. No injection or drainage. NECK: Supple, trachea midline. No JVD or lymphadenopathy. CARDIOVASCULAR: Regular rate and rhythm without murmurs, gallops, or rubs. RESPIRATORY: Breath sounds equal bilaterally. No accessory muscle use. GASTROINTESTINAL: Abdomen soft, non-tender, nondistended. MUSCULOSKELETAL: No cyanosis, or edema. BACK: Nontender without obvious deformity. No CVA tenderness. Course Initial Documented Vital Signs Temperature 98.5 F 05/20/18 09:23 Pulse Rate 98 H 05/20/18 09:23 Respiratory Rate 20 05/20/18 09:23 Blood Pressure 118/66 05/20/18 09:23 Pulse Oximetry 99 05/20/18 09:23 Last Documented Vital Signs Temperature 98.3 F 05/20/18 12:42 Pulse Rate 80 05/20/18 12:42 Respiratory Rate 16 05/20/18 12:42 Blood Pressure 118/66 05/20/18 09:23 Pulse Oximetry 100 05/20/18 12:42 Medical Decision Making MDM Narrative Medical decision making narrative: 37-year-old obese white female who presents the ED for evaluation of intermittent chest pain. She is a 15 year pack per day smoker. Denies chronic illnesses and takes no daily medications. Patient was admitted to the chest pain center and had an abnormal stress test. Stress test reveals moderate size mild severity apical perfusion abnormality with at least mild redistribution suspected intermediate risk. Plan was to admit the patient yesterday, however she left AMA. She states she is back today for treatment. Vitals reviewed. No acute changes on EKG. Lab work is unremarkable. Spoke with Dr. Shelby who plans to take the patient to the cath suite this afternoon. He requests admission to [facility]. I spoke with Dr. Hart who agrees to accept the patient to the medicine service. Please see cardiology and medicine notes for disposition. Differential Diagnosis Differential Diagnosis: Chest pain versus anxiety versus ACS versus other Lab Data Result diagrams: 05/20/18 09:30 Lab Results 05/20/18 Range/Units 09:30 Sodium 142 (136-145) meq/L Potassium 3.9 (3.5-5.1) meq/L Chloride 110 H (98-107) meq/L Carbon Dioxide 21.8 (21.0-32.0) meq/L Anion Gap 10 (5-15) meq/L BUN 10 (7-18) mg/dL Creatinine 0.98 (0.50-1.00) mg/dL Estimated GFR 64 L (>89) mL/min Random Glucose 134 H (74-106) mg/dL Calcium 8.7 (8.5-10.1) mg/dL Total Bilirubin 0.3 (0.2-1.0) mg/dL AST 17 (15-37) U/L ALT 26 (10-53) U/L Alkaline Phosphatase 91 (45-117) U/L Total Creatine Kinase 69 (26-192) U/L Troponin I Less than 0.02 L (0.02-0.05) ng/mL Total Protein 7.5 (6.4-8.2) g/dL Albumin 3.5 (3.4-5.0) g/dL Discharge Plan Discharge Disposition Patient Disposition: 30 Still Patient Discharge Details Diagnosis: Abnormal stress test, Chest pain Physicians Team ED Provider: José Manuel Waller ED Midlevel Provider: Diane Lopez Primary Care Provider: Magdy Johnson Other Providers: Edilberto Shelby Rxs /Orders / Referrals /Forms Prescriptions: No Action No Known Home Medications RF: 0 Discharge Instructions Patient Printed Instructions: Chest Pain (ED) Discharge Interventions Interventions: Vital Signs Last Done: 05/20/18 12:42 Status ED Status: With Doctor
[2018-05-20 12:58] VITALS: PULSE 80; RESP 16; TEMP 98.3
[2018-05-20] MEDS ORDERED: Bisacodyl 10 MG Supp RECTAL PRN (13:14)
[2018-05-20] MEDS ORDERED: Heparin/NS PF Inj 1,000 ML ONE (13:50)
--- NOTE | 2018-05-20 14:18 | MB ---
cc: Edilberto Shelby MD DATE: 05/20/2018 HISTORY OF PRESENT ILLNESS: Justina is a very pleasant 37-year-old lady who smokes, works as a correction officer head for the [employer]. She came to the emergency room yesterday and received a myocardial perfusion study which was read as a moderate risk study with perfusion abnormality in the anterior apical wall by report. Currently denies chest pain, fever, chills, cough, GI or bleeding, PND, orthopnea, syncope or dizziness. She does describe her pain is a smothering type sensation. She had a negative urine test yesterday. PAST MEDICAL HISTORY: Per History of Present Illness. SOCIAL HISTORY: She smokes a pack of cigarettes a day for the last 15 years. Drinks alcohol occasionally. ALLERGIES: None. PAST MEDICAL HISTORY: Includes abdominal hernia, sciatica, hernia repair. MEDICATIONS: In the hospital p.r.n. medication. PHYSICAL EXAMINATION: VITAL SIGNS: Temperature 98.5, pulse 98, blood pressure 118/66, respiratory rate is 20. GENERAL: She is alert and oriented x3, in no acute distress. NECK: Supple. No JVD. No bruit. CARDIOVASCULAR: S1, S2. No murmurs, rubs or gallops. LUNGS: Clear to auscultation bilaterally. ABDOMEN: Soft, nontender, nondistended with positive bowel sounds. EXTREMITIES: No lower extremity edema. LABORATORIES: Sodium 142, potassium 3.9, chloride 110, bicarbonate 21.8, BUN 10, creatinine 0.98, glucose 134. Troponin less than 0.02. AST 17, ALT 26. IMAGING STUDIES: Nuclear stress test on 05/19/2018: Moderate sized, mild severity apical perfusion abnormality with at least mild redistribution. EF 69%. EKG: Normal sinus rhythm at 86 beats per minute, otherwise normal. DIAGNOSES: 1. Unstable angina. 2. [place] [employer] class IV angina. 3. Tobacco abuse. 4. Moderate risk myocardial perfusion study. DISCUSSION: At this point in time the patient has a moderate risk nuclear stress test with resting chest pain, new onset chest pain at rest, unstable angina, [place] [employer] Society class IV angina. Therefore left heart catheterization is medically indicated. I explained to the patient the risk of catheterization/PCI has a 5-10% chance of , stroke, heart attack, bleeding, infection, need for bypass surgery, surgery, dialysis, blood transfusion, bleeding, infection, anaphylaxis and arrhythmia. The patient understands and consents to the procedure. I have strongly recommended smoking cessation. MD DIPIKA Tony/TAL , 02:00 PM , 02:17 PM
[2018-05-20] MEDS ORDERED: fentaNYL Citrate Inj 100 MCG/2 ML Ampul ONE (14:25)
--- NOTE | 2018-05-20 15:09 | MA ---
cc: Edilberto Shelby MD DATE: 05/20/2018 PROCEDURE: Left heart catheterization, left ventriculography and coronary angiography. INDICATIONS: Unstable angina, [place] Cardi[employer] class IV angina, intermediate risk myocardial perfusion study. Tobacco use. PROCEDURE DETAILS: The patient was brought to the cardiac catheterization laboratory, prepped and draped in the usual sterile fashion. 10 mL of 1% lidocaine was used to locally anesthetize the right common femoral artery. A 4-Monegasque sheath was placed in right common femoral artery. A 4-Monegasque JR4 and JL4 catheters were used to perform left and right coronary angiography and left ventriculography. A 4-Monegasque sheath was placed in the right common femoral artery. 4-Monegasque JR4 and JL4 catheters were used to perform left and right coronary angiography and left ventriculography. FINDINGS: LV pressure is 105/3-5. EF 60%. The right coronary artery is dominant. No significant disease angiographically. The left main coronary artery has no significant disease angiographically. The left circumflex vessel has no significant disease angiographically. There is a high obtuse marginal vessel, which is a medium-sized vessel, 2.75 mm in diameter. No significant disease angiographically. The second obtuse marginal vessel comes off in the mid-AV groove. The left circumflex is a medium-sized vessel, reference vessel diameter of 2/5 mm. The left circumflex vessel terminates into a small posterolateral artery, which has no significant disease angiographically. The LAD is large and transapical, tortuous in the mid to distal segment. No significant disease angiographically. The first diagonal artery is a small artery with no significant disease angiographically. Second diagonal artery is a small to medium-sized vessel with no significant disease angiographically. Note: The LAD is approaches the apex. CONCLUSION: 1. Angiographically no significant coronary artery disease in a right dominant system, as detailed above. 2. Normal left ventricular systolic function, ejection fraction 60%. RECOMMENDATIONS: 1. Recommend evaluation for noncardiac chest pain. 2. I have strongly advised the patient to stop smoking. MD DIPIKA Tony/TAL , 02:41 PM , 03:08 PM
[2018-05-20 15:26] VITALS: O2SAT 99
--- NOTE | 2018-05-20 15:43 | P.HPIM ---
History of Present Illness Primary Care Physician: Magdy Johnson DO History of Present Illness: 37-year-old female who experienced dull left-sided chest pain upon waking. She says she has been tossing and turning more often over the past few weeks. Wakes up tired. She denies exertional chest pain however. Denies any nausea, vomiting. She says she does have a history of reflux, however this does not feel the same. Currently chest pain has resolved. I discussed with Dr. Shelby, clutch specialist who is cleared patient for discharge. Inpatient Certification: I certify that the inpatient services were ordered in accordance with Medicare regulations governing the order. This includes certification that hospital inpatient services are reasonable and necessary and in the case of services not specified as inpatient-only under 42 CFR 419.22(n), that they are appropriately provided as inpatient services in accordance to with the 2-midnight benchmark under 43 CFR 412.3(e) [facility] - History History Provided By: Patient - Medical History Medical History: Medical History (Last Reviewed 05/20/18 @ 12:49 by Argenis Gaviria) Abdominal hernia (Acute) Sciatica (Acute) - Surgical History Surgical History: Surgical History (Last Updated 05/20/18 @ 12:49 by Argenis Gaviria) H/O hernia repair (Acute) - Tobacco History Second Hand Smoke Exposure: Yes Tobacco Use In Past 30 Days: Yes Smoking Status: Heavy tobacco smoker Tobacco Type: Cigarettes Cigarettes Per Day: 20 - Alcohol History How Often Do You Have a Drink Containing Alcohol: Monthly or less - Substance Use History Substance History: No History of Abuse - Travel History Recent Travel in the [place] Within the Last 8 Weeks: No Recent Travel Out of the Country Within the Last 8 Weeks: No - Immunization History Tetanus Immunization: >5 Years Hx Influenza Vaccine This Season: No Medications and Allergies Active Medications: Active Medications Al Hydroxide/Mg Hydroxide (Milk Of Magnesia Liq) 30 ml PO Q12H PRN PRN Reason: Mild Constipation Bisacodyl (Dulcolax Supp) 10 mg RECTAL DAILY PRN PRN Reason: SEVERE CONSITIPATION Lactulose (Lactulose Liq) 30 ml PO DAILY PRN PRN Reason: SEVERE CONSITIPATION Senna/Docusate Sodium (Agnes-Colace) 1 tab PO BID TOOTIE Sennosides (Senokot) 17.2 mg PO Q12H PRN PRN Reason: Moderate Constipation Sodium Chloride (Ns Flush) 2 ml IV.FLUSH BID TOOTIE Sodium Chloride (Ns Flush) 2 ml IV.FLUSH PRN PRN PRN Reason: FLUSH AFTER USING IV ACCESS Temazepam (Restoril) 15 mg PO HS PRN PRN Reason: INSOMNIA Allergies Allergy/AdvReac Type Severity Reaction Status Date / Time No Known Allergies Allergy Verified 05/19/18 03:31 Home Medications Medication Instructions Recorded Confirmed Type No Known Home Medications 05/20/18 05/20/18 History Exam Vital signs: Vital Signs 05/20/18 09:23 05/20/18 12:42 05/20/18 15:24 Temperature 98.5 F 98.3 F Pulse Rate 98 H 80 Respiratory Rate 20 16 Blood Pressure 118/66 Pulse Oximetry 99 100 99 Intake & Output 05/19/18 05/20/18 05/20/18 18:59 06:59 18:59 Weight 129.274 kg Narrative: GENERAL: Patient lying in bed. Morbidly obese. Appears comfortable. Alert and oriented 3. SKIN: Warm and dry. HEAD: Normocephalic. EYES: No scleral icterus. No injection or drainage. NECK: Supple, trachea midline. No JVD. CARDIOVASCULAR: Regular rate and rhythm without murmurs, gallops, or rubs. RESPIRATORY: Breath sounds equal bilaterally. No accessory muscle use. GASTROINTESTINAL: Abdomen soft, non-tender, nondistended. MUSCULOSKELETAL: No cyanosis, or edema. BACK: Nontender without obvious deformity. No CVA tenderness. Results - Labs CBC & Chem 7: 05/20/18 09:30 Labs: BMP 05/20/18 09:30 Sodium 142 Potassium 3.9 Chloride 110 H Carbon Dioxide 21.8 BUN 10 Creatinine 0.98 Calcium 8.7 Cardiac Enzymes 05/20/18 Range/Units 09:30 Total Creatine Kinase 69 (26-192) U/L Troponin I Less than 0.02 L (0.02-0.05) ng/mL Liver Function 05/20/18 Range/Units 09:30 Total Bilirubin 0.3 (0.2-1.0) mg/dL AST 17 (15-37) U/L ALT 26 (10-53) U/L Alkaline Phosphatase 91 (45-117) U/L Albumin 3.5 (3.4-5.0) g/dL Caprini VTE Risk Assessment Caprini VTE Risk Assessment: No/Low Risk (score <= 1) Caprini Risk Assessment Model: Point Value = 1 Point Value = 2 Point Value = 3 Point Value = 5 Age 41-60 Minor surgery BMI > 25 kg/m2 Swollen legs Varicose veins or History of unexplained or recurrent spontaneous Oral contraceptives or hormone replacement Sepsis (< 1 month) Serious lung disease, including pneumonia (< 1 month) Abnormal pulmonary function Acute myocardial infarction Congestive heart failure (< 1 month) History of inflammatory bowel disease Medical patient at bed rest Age 61-74 Arthroscopic surgery Major open surgery (> 45 min) Laparoscopic surgery (> 45 min) Malignancy Confined to bed (> 72 hours) Immobilizing plaster cast Central venous access Age >= 75 History of VTE Family history of VTE Factor V Leiden Prothrombin [id number] Lupus anticoagulant Anticardiolipin antibodies Elevated serum homocysteine Heparin-induced thrombocytopenia Other congenital or acquired thrombophilia Stroke (< 1 month) Elective arthroplasty Hip, pelvis, or leg fracture Acute spinal cord injury (< 1 month) Prophylaxis Regimen: Total Risk Factor Score Risk Level Prophylaxis Regimen 0-1 Low Early ambulation 2 Moderate Order ONE of the following: *Sequential Compression Device (SCD) *Heparin 5000 units SQ BID 3-4 Higher Order ONE of the following medications: *Heparin 5000 units SQ TID *Enoxaparin/Lovenox 40 mg SQ daily (WT < 150 kg, CrCl > 30 mL/min) *Enoxaparin/Lovenox 30 mg SQ daily (WT < 150 kg, CrCl > 10-29 mL/min) *Enoxaparin/Lovenox 30 mg SQ BID (WT < 150 kg, CrCl > 30 mL/min) AND/OR *Sequential Compression Device (SCD) 5 or more Highest Order ONE of the following medications: *Heparin 5000 units SQ TID (Preferred with Epidurals) *Enoxaparin/Lovenox 40 mg SQ daily (WT < 150 kg, CrCl > 30 mL/min) *Enoxaparin/Lovenox 30 mg SQ daily (WT < 150 kg, CrCl > 10-29 mL/min) *Enoxaparin/Lovenox 30 mg SQ BID (WT < 150 kg, CrCl > 30 mL/min) AND *Sequential Compression Device (SCD) Assessment and Plan - Plan //Chest pain. Currently resolved. Discussed with clutch specialist. Status post negative cardiac catheterization. This is likely secondary to obstructive sleep apnea has occurred after waking up during sleep. Patient will pursue evaluation with primary care doctor //Tobaccoism. Cessation counseling provided. //Morbid obesity. Recommend weight loss which should help with suspected sleep apnea as well. Discharge Planning: Discharge home. Follow-up primary care.
[2018-05-20] MEDS ORDERED: Iohexol 350 MG/ML 50 ML Vial (for Cath Lab) IVCONTRAST ONE (17:13)
--- NOTE | 2018-05-20 20:21 | ECG ---
Date Performed: 05/20/2018 Time Performed: 09:30:26 PTAGE: 37 years EKG: Sinus rhythm LOW QRS VOLTAGE IN PRECORDIAL LEADS BORDERLINE ECG PREVIOUS TRACING : 05/19/2018 08.26 No significant change DOCTOR: Osorio James Interpretating Date/Time 05/20/2018 20:19:34
[2018-05-20] MEDS ORDERED: Temazepam 15 MG Capsule PO PRN (21:00)
[2018-05-20] MEDS ORDERED: Senna/Docusate Sodium 8.6/50 MG Tablet PO SCH (21:00)
== END 2018-05-20 17:14 | disposition home or self-care (01) ==
LOC: NEDA 09:07 → NEPE 09:07 → NEDA 13:56
PROVIDERS: ADMIT Internal Medicine; ATTEND Internal Medicine
DX: F17.210 Nicotine dependence, cigarettes, uncomplicated; E66.01 Morbid (severe) obesity due to excess calories; M54.30 Sciatica, unspecified side; I20.0 Unstable angina; K21.9 Gastro-esophageal reflux disease without esophagitis; G47.33 Obstructive sleep apnea (adult) (pediatric)